=== PATIENT | female | born 1965 | race Caucasian/White ===

== ENCOUNTER → 2018-07-31 | Outpatient (CLI) | payer OTHER ==
--- NOTE | 2018-07-31 09:34 | FL ---
EXAMINATION TYPE: FL barium swallow DATE OF EXAM: 07/31/2018 CLINICAL HISTORY: Dysphasia TECHNIQUE: A double contrast esophagram is performed utilizing air and barium. A total of seconds o f fluoroscopic time was utilized during procedure. COMPARISON: None FINDINGS: The esophagus shows normal motility and emptying into the stomach. Tiny sliding hiatal kayli ia noted. No significant gastroesophageal reflux was seen during real time performance of this study. 49 seconds of fluoroscopy time and 20 at 7 images submitted. IMPRESSION: 1. Tiny hiatal hernia with no diagnostic evidence of gastroesophageal reflux.
== END | disposition home or self-care (01) ==
LOC: RADFLWHC 08:31
PROVIDERS: ATTEND Otolaryngology
DX: R13.10 Dysphagia, unspecified (principal)
CPT/HCPCS: 74220

== ENCOUNTER → 2022-07-31 | Outpatient (CLI) | payer BC ==
[2022-07-31 10:20] VITALS: BP 125/84; PULSE 74; RESP 18; TEMP 97.9
--- NOTE | 2022-07-31 13:22 | P.HPOB ---
History of Present Illness H&P Date: 07/31/22 Chief Complaint: The patient is here for her routine gynecologic exam and ma mmogram. This is a 56-year-old with an LMP of 2006. The patient is here to establish with this office. It is about 1 year since her last pelvic exam. 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 Through Dr. Marinelli, she was using ERT in the form of estradiol patches. She has been using ERT since the time of her hysterectomy and oophorectomy approximately 15 years ago. Her prescription for the ERT ran out 2 weeks ago. She has been having significant hot flashes which have been very bothersome and she would like to restart ERT. She is otherwise without complaints. Review of Systems The patient has lost 7 pounds over the last year. Weight loss has been intentional and she has been doing this with diet and exercise. She would like to lose more weight. She denies respiratory, cardiac, or G.I. problems. Past Medical History Past Medical History: Asthma, GERD/Reflux Additional Past Medical History / Comment(s): SEASONAL ASTMA/ALLERGIES. 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 History of Any Multi-Drug Resistant Organisms: None Reported Past Surgical History: Back Surgery, Hysterectomy, Tonsillectomy Additional Past Surgical History / Comment(s): Left oophorectomy at age 21. ABUNDIO with RSO in 2006 for benign heavy bleeding. Colonoscopy 2015(pt told next after 10yr). Past Anesthesia/Blood Transfusion Reactions: No Reported Reaction Past Psychological History: Anxiety, Depression Smoking Status: Never smoker Past Alcohol Use History: Occasional (2 per month) Past Drug Use History: None Reported Additional History: She has been since 1988. 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 - Past Family History Mother Family Medical History: Dementia, Hypertension Additional Family Medical History / Comment(s): Schizophrenia. Maternal aunt has hypertension. Maternal uncle has dementia. Father Family Medical History: Cancer Additional Family Medical History / Comment(s): Colon cancer. Alcoholism. . Medications and Allergies Home Medications Medication Instructions Recorded Confirmed Type Loratadine/Pseudoephedrine 1 cap PO DAILY 07/31/22 07/31/22 History [Loratadine-D 24Hr Tablet] Multivitamin [Multivitamins Adult 1 cap PO DAILY 07/31/22 07/31/22 History Gummies] Omeprazole [PriLOSEC] 10 mg PO DAILY 07/31/22 07/31/22 History Allergies Allergy/AdvReac Type Severity Reaction Status Date / Time Penicillins Allergy Rash/Hives Unverified 07/31/22 10:11 Exam Vital Signs Temp Pulse Resp BP Pulse Ox 07/31/22 10:15 97.9 F 74 18 125/84 96 Intake and Output 07/30/22 07/31/22 07/31/22 22:59 06:59 14:59 Other: Weight 109.316 kg Height 5 feet 4 inches, weight 241 pounds, BMI 41.4. This is a well-developed well-nourished heavyset white female who is alert and oriented times 3 in no acute distress. HEENT: Within normal limits. NECK: Supple without mass or thyromegaly. CHEST AND LUNGS: Clear to auscultation. HEART: Regular rate and rhythm. BREASTS: Are without mass or discharge. AXILLARY EXAM: Negative for adenopathy. BACK: Negative for CVA tenderness. ABDOMEN: Soft, nontender, without palpable masses. PELVIC EXAM: External genitalia appears normal with minimal atrophy. Vagina appears normal with minimal atrophy. There is no evidence of prolapse. Bimanual examination is negative for mass or tenderness. RECTAL EXAM: Rectovaginal exam is negative for mass or tenderness and is negative for occult blood. EXTREMITIES: Nontender. IMPRESSION: 1. 56-year-old menopausal female status post ABUNDIO/BSO for benign reasons, with normal gynecologic exam. 2. Worsening vasomotor symptoms after her ERT prescription ran out 2 weeks ago. PLAN: 1. Pap smears have been discontinued. 2. Self breast awareness was discussed with the patient. We have also discussed symptoms associated with inflammatory breast cancer. 3. Screening mammogram was done today. 4. We have had a long discussion regarding ERT. We have discussed the WHO study findings including possible increased risk for stroke and blood clots. Because of the symptoms she feels strongly that she would like to go back on ERT. I recommended that we try to find the lowest effective dose that helps her with her symptoms and to use this for the shortest amount of time. She previously used estradiol 0.05 mg patches changed weekly. We will have a trial of estradiol 0.0375 mg patches changed to weekly. She will call if she is having problems with this dose. She will also try to wean from this during the upcoming year. The electronic prescription will be sent to [facility] pharmacy on [facility]. 5. Osteoporosis prevention was discussed. I have stressed the importance of adequate calcium, vitamin D and regular exercise. Recommended amounts of calc ium and vitamin D were also discussed. 6. She has completed her Covid vaccination series and has received a booster. 7. I recommended that she consider doing a colonoscopy after 5 years because of her family history of colon cancer in her father. I have recommended this consider waiting 10 years. 8. She was advised to return in one year for her annual well woman exam and as needed.
== END ==
LOC: WWCWWP 10:05
PROVIDERS: ATTEND Obstetrics & Gynecology
DX: Z01.419 Encounter for gynecological examination (general) (routine) without abnormal findings (principal); Z88.0 Allergy status to penicillin; E66.9 Obesity, unspecified; Z68.41 Body mass index [BMI] 40.0-44.9, adult; Z90.710 Acquired absence of both cervix and uterus
CPT/HCPCS: 77063; 77067

== ENCOUNTER → 2023-08-27 | Outpatient (CLI) | payer BC ==
[2023-08-27 11:08] VITALS: BP 131/85; PULSE 88; RESP 17; TEMP 97.8
--- NOTE | 2023-08-27 12:13 | P.HPOB ---
History of Present Illness H&P Date: 08/27/23 Chief Complaint: The patient is here for her routine gynecologic exam and ma mmogram. This is a 57-year-old with an LMP of 2069 the patient is status post ABUNDIO/BSO for benign reasons. She continues to use ERT with patches, estradiol 0.375 changed weekly. She does have infrequent hot flashes but they seem to be fairly well-controlled. She has been experiencing some urinary incontinence especially with coughing and sneezing. Occasionally she also feels like she has to get to the bathroom right away, but mostly it is instant leakage. She has also been trying to lose weight and states that she has been on a strict diet of 1400 mellissa per day with exercise for the past 5 months and has not noticed any significant weight change. Review of Systems The patient's weight has been stable over the last year. She denies respiratory, cardiac, or G.I. problems. : Mixed urinary incontinence as in the HPI. Past Medical History Past Medical History: Asthma, GERD/Reflux Additional Past Medical History / Comment(s): SEASONAL ASTMA/ALLERGIES. 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 History of Any Multi-Drug Resistant Organisms: None Reported Past Surgical History: Back Surgery, Hysterectomy, Tonsillectomy Additional Past Surgical History / Comment(s): Left oophorectomy at age 21. ABUNDIO with RSO in 2006 for benign heavy bleeding. Colonoscopy 2016. Past Anesthesia/Blood Transfusion Reactions: No Reported Reaction Past Psychological History: Anxiety, Depression Smoking Status: Never smoker Past Alcohol Use History: Occasional (2 per month.) Past Drug Use History: None Reported Additional History: She has been since 1988. 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 - Past Family History Mother Family Medical History: Dementia, Hypertension Additional Family Medical History / Comment(s): Schizophrenia. Maternal aunt has hypertension. Maternal uncle has dementia. Father Family Medical History: Cancer Additional Family Medical History / Comment(s): Colon cancer. Alcoholism. D eceased. Medications and Allergies Home Medications Medication Instructions Recorded Confirmed Type Loratadine/Pseudoephedrine 1 cap PO DAILY 07/31/22 08/27/23 History [Loratadine-D 24Hr Tablet] Multivitamin [Multivitamins Adult 1 cap PO DAILY 07/31/22 08/27/23 History Gummies] Omeprazole [PriLOSEC] 10 mg PO DAILY 07/31/22 08/27/23 History estradioL [estradioL (Once Weekly) 1 patch TRANSDERM WEEKLY #12 patch 07/31/22 08/27/23 Rx 0.0375 mg Patch] Ascorbic Acid [Vitamin C] 1,000 mg PO DAILY 08/27/23 08/27/23 History Cholecalciferol (Vitamin D3) 1 cap PO DAILY 08/27/23 08/27/23 History [Vitamin D3] Cyanocobalamin (Vitamin B-12) 2,500 mcg PO DAILY 08/27/23 08/27/23 History [Vitamin B-12] Magnesium Oxide [Magnesium] 500 mg PO DAILY 08/27/23 08/27/23 History Mv-Mn/FA/Bl Coh/Isoflav/Jujube 1 cap PO DAILY 08/27/23 08/27/23 History [Estroven Menopause Caplet] Ubidecarenone [Co Q-10] 1 cap PO DAILY 08/27/23 08/27/23 History Allergies Allergy/AdvReac Type Severity Reaction Status Date / Time Penicillins Allergy Rash/Hives Unverified 08/27/23 10:45 Exam Vital Signs Temp Pulse Resp BP Pulse Ox 08/27/23 10:51 97.8 F 88 17 131/85 97 Intake and Output 08/26/23 08/27/23 08/27/23 22:59 06:59 14:59 Other: Weight 108.862 kg Height 5 feet 4 inches, weight 240 pounds, BMI 41.2. This is a well-developed well-nourished heavyset white female who is alert and oriented times 3 in no acute distress. HEENT: Within normal limits. NECK: Supple without mass or thyromegaly. CHEST AND LUNGS: Clear to auscultation. HEART: Regular rate and rhythm. BREASTS: Are without mass or discharge. AXILLARY EXAM: Negative for adenopathy. BACK: Negative for CVA tenderness. ABDOMEN: Soft, obese, nontender, without palpable masses. PELVIC EXAM: External genitalia appears normal with mild atrophy. Vagina appears normal with mild atrophy. There is no evidence of prolapse. There is minimal urethral mobility with cough and Valsalva. No urinary leakage was demonstrated. Bimanual examination is negative for mass or tenderness. RECTAL EXAM: Rectovaginal exam is negative for mass or tenderness and is negative for occult blood. EXTREMITIES: Nontender. IMPRESSION: 1. 57-year-old menopausal female status post ABUNDIO/BSO for benign reasons, with normal gynecologic exam. 2. Doing well on ERT in the form of estradiol patches. 3. Mild mixed urinary incontinence without any significant physical findings on exam today. 4. Obesity with difficulty losing weight with diet and exercise. PLAN: 1. Pap smears have been discontinued. 2. Self breast awareness was discussed with the patient. We have also discussed symptoms associated with inflammatory breast cancer. 3. Screening mammogram will be done today. 4. We have had a long discussion regarding urinary incontinence. I have recommended Kegal exercises and timed voids. Instructions on these were discussed the patient. We have also discussed the option of referral to a gynecologic urologist. If she is having significant problems without improvement she was instructed to call after about 3 months for possible referral. 5. We have had a long discussion regarding weight control. I stressed importance of good nutrition, regular meals, and adequate fiber. We've also discussed the importance of regular exercise. I have recommended that she she'll look into a more structured program such as a Weight Watchers program. 6. She is due for a colonoscopy with her father's history of colon cancer. She states she did a Cologuard test during this past year. I have recommended that she do colorectal cancer screening with colonoscopies and not Cologuard since she is considered at higher risk. She will discuss this with her PCP. 7. Continue ERT in the form of estradiol 0.375 mg patches changed weekly. The electronic prescription will be sent to [facility] pharmacy on . 8. She was advised to return in one year for her annual well woman exam and as needed.
--- NOTE | 2023-08-27 13:40 | MM ---
Reason for Exam: Screening (asymptomatic). Last mammogram was performed 1 year(s) and 1 month(s) ago. Patient History: Menarche at age 14. First Full-Term at age 26. Left ovary removed at age 42. Right ovary removed at age 42. Hysterectomy at age 42. Postmenopausal. Risk Values: Sylvie 5 year model risk: 1.1%. NCI Lifetime model risk: 7.4%. Prior Study Comparison: 10/10/2020 Bilateral MG 3D screening mammo w/cad, [facility] [place] . 10/17/2021 Bilateral MG 3D screening mammo w/cad, [facility] [place] . 07/31/2022 Bilateral MG 3D screening mammo w/cad, [facility]. Tissue Density: The breast tissue is heterogeneously dense. This may lower the sensitivity of mammography. Findings: Analyzed By CAD. There is no suspicious group of microcalcifications or new suspicious mass. Benign-appearing calcifications bilaterally. Overall Assessment: Negative, BI-RAD 1 Management: Screening Mammogram of both breasts in [address] [facility] will attempt to contact patient to return for supplemental views and ultrasound if indicated. Patient should continue monthly self-breast exams. A clinical breast exam by your physician is recommended on an annual basis. This exam should not preclude additional follow-up of suspicious palpable abnormalities. Note on Sylvie scores and lifetime risk: 1. A Sylvie score greater than 3% is considered moderate risk. If this is the case, consider specialist referral to assess eligibility for a risk reducing agent. 2. If overall lifetime risk for the development of breast cancer is 20% or higher, the patient may qualify for future screening with alternating mammogram and breast MRI. Electronically signed and approved by: Alvarado Oreilly DO
== END ==
LOC: WWCWWP 10:33
PROVIDERS: ATTEND Obstetrics & Gynecology
DX: Z12.31 Encounter for screening mammogram for malignant neoplasm of breast (principal); E66.9 Obesity, unspecified; J45.909 Unspecified asthma, uncomplicated; N39.46 Mixed incontinence; K21.9 Gastro-esophageal reflux disease without esophagitis; Z78.0 Asymptomatic menopausal state; Z68.41 Body mass index [BMI] 40.0-44.9, adult; Z88.0 Allergy status to penicillin; Z90.710 Acquired absence of both cervix and uterus; Z90.722 Acquired absence of ovaries, bilateral; Z79.899 Other long term (current) drug therapy
CPT/HCPCS: 77063; 77067

== ENCOUNTER → 2023-11-18 | Outpatient (CLI) | payer BC ==
[2023-11-18 14:37] VITALS: BP 130/87; PULSE 91; TEMP 98.5; BMI 39.1
--- NOTE | 2023-11-18 14:46 | P.HPBAR ---
Bariatric H&P - History & Physicial H&P Date: 11/18/23 History & Physicial: Visit/CC: initial clinic visit Patient initial contact: Initial weight: Initial weight in pounds: Height: 5 ft 4 in Initial BMI: Last weight: Current weight: 103.419 kg Current weight in pounds: 228.00 Current BMI: 39.1 Mallory body weight (based on NIH guidelines): 54.431 kg Excess body weight loss: The patient is a 57 year-old F who presents for Bariatric Assessment. Patient comes in today to discuss weight loss surgery as an option. Current BMI 39.1. Patient overall fairly healthy. She has had 2 friends that have had a sleeve gastrectomy in the past and done well. She believes her metabolism is slow and she is not able to keep weight off like she used to. Patient with history of GERD symptoms, prior history of hypercholesterolemia, mild back and right knee pain from suspected arthritis. No tobacco use. No history of DVT or dysphagia. Remains on omeprazole. Had an upper endoscopy about 10 years ago. She is unsure if she had a hiatal hernia at the time. Previous surgeries include hysterectomy, right oophorectomy, inguinal hernia as a child. Review of Systems The patient denies any acute changes in vision or hearing, no dysphagia or odynophagia, no chest pain or shortness of breath, no dysuria or hematuria, no headache, no runny nose, no rectal bleeding or melena, no unexplained weight loss Past Medical History Past Medical History: Asthma, GERD/Reflux Additional Past Medical History / Comment(s): SEASONAL ASTMA/ALLERGIES. 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 History of Any Multi-Drug Resistant Organisms: None Reported Past Surgical History: Back Surgery, Hysterectomy, Tonsillectomy Additional Past Surgical History / Comment(s): Left oophorectomy at age 21. ABUNDIO with RSO in 2006 for benign heavy bleeding. Colonoscopy 2016. Past Anesthesia/Blood Transfusion Reactions: No Reported Reaction Past Psychological History: Anxiety, Depression Smoking Status: Never smoker Past Alcohol Use History: Occasional Past Drug Use History: None Reported - Past Family History Mother Family Medical History: Dementia, Hypertension Additional Family Medical History / Comment(s): Schizophrenia. Maternal aunt has hypertension. Maternal uncle has dementia. Father Family Medical History: Cancer Additional Family Medical History / Comment(s): Colon cancer. Alcoholism. . Surgical - Exam Vital Signs Temp Pulse BP 98.5 F 91 130/87 11/18/23 14:21 11/18/23 14:21 11/18/23 14:21 Physical exam: General: Well-developed, well-nourished HEENT: Normocephalic, sclerae nonicteric Abdomen: Nontender, nondistended Extremities: No edema Neuro: Alert and oriented Bariatric Assessment & Plan (1) Obesity (BMI 30-39.9) Narrative/Plan: 57-year-old female with severe obesity and associated comorbidities. Patient is interested in sleeve gastrectomy. She did state that she would like to discuss the option of GLP agonist with her primary care physician at her annual exam next month. She will contact me after that to tell me if she would like to proceed. If so we will perform upper endoscopy to evaluate for possible hiatal hernia. We discussed the options of sleeve gastrectomy, gastric bypass in detail. The risks of bleeding, infection, stenosis, stricture, leak, abscess, fistula formation, peritonitis, poor weight loss, reflux, vomiting, conversion to an open procedure, aborting sleeve gastrectomy, NM, PE, DVT, and were discussed. All questions answered. Status: Acute Bariatric Checklist Checklist: Plan: Checklist: EGD: 1. Hiatal hernia: 2. H. Pylori: HgbA1c: Vitamin D: Smoking: Primary care physician referral: Psychiatry clearance: Cardiology clearance: Sleep study: Diet journal: VTE risk score: VTE risk level: Rehab needs at discharge:
== END ==
LOC: BARWHC3 14:06
PROVIDERS: ATTEND Surgery
DX: K21.9 Gastro-esophageal reflux disease without esophagitis (principal); E66.9 Obesity, unspecified; J45.909 Unspecified asthma, uncomplicated; F41.9 Anxiety disorder, unspecified; F32.A Depression, unspecified; Z88.0 Allergy status to penicillin; Z68.39 Body mass index [BMI] 39.0-39.9, adult
CPT/HCPCS: 99212

== ENCOUNTER → 2024-09-01 | Outpatient (CLI) | payer BC ==
[2024-09-01 10:58] VITALS: BP 147/87; PULSE 81; RESP 17; TEMP 98
--- NOTE | 2024-09-01 11:28 | P.HPOB ---
History of Present Illness H&P Date: 09/01/24 Chief Complaint: The patient is here for her routine gynecologic exam and ma mmogram. This is a 58-year-old G2, P2 with an LMP of 2006. She is status post ABUNDIO/BSO for benign reasons. She continues to use ERT patches, estradiol 0.0375 changed weekly. She would like to continue on with the ERT patches since she states she has decreased energy when she does not use the patches and this is important as she tries to lose weight. She has lost about 18 pounds over the past year. She has done this with diet and exercise. She is without gynecologic complaints. Review of Systems The patient has lost 18 pounds over the last year. She has done this with regular exercise and dietary changes. She denies respiratory, cardiac, or G.I. problems. Past Medical History Past Medical History: Asthma, GERD/Reflux Additional Past Medical History / Comment(s): SEASONAL ASTMA/ALLERGIES. 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 History of Any Multi-Drug Resistant Organisms: None Reported Past Surgical History: Back Surgery, Hysterectomy, Tonsillectomy Additional Past Surgical History / Comment(s): Left oophorectomy at age 21. ABUNDIO with RSO in 2006 for benign heavy bleeding. Colonoscopy 2023(next after 5yr). Past Anesthesia/Blood Transfusion Reactions: No Reported Reaction Past Psychological History: Anxiety, Depression Smoking Status: Never smoker Past Alcohol Use History: Occasional Past Drug Use History: None Reported - Past Family History Mother Family Medical History: Dementia, Hypertension Additional Family Medical History / Comment(s): Schizophrenia. . Maternal aunt has hypertension. Maternal uncle has dementia. Father Family Medical History: Cancer Additional Family Medical History / Comment(s): Colon cancer. Alcoholism. . Medications and Allergies Home Medications Medication Instructions Recorded Confirmed Type Loratadine/Pseudoephedrine 1 cap PO DAILY 07/31/22 11/19/23 History [Loratadine-D 24Hr Tablet] Multivitamin [Multivitamins Adult 1 cap PO DAILY 07/31/22 11/19/23 History Gummies] Omeprazole [PriLOSEC] 10 mg PO DAILY 07/31/22 11/19/23 History Ascorbic Acid [Vitamin C] 1,000 mg PO DAILY 08/27/23 11/19/23 History Cholecalciferol (Vitamin D3) 1 cap PO DAILY 08/27/23 11/19/23 History [Vitamin D3] Cyanocobalamin (Vitamin B-12) 2,500 mcg PO DAILY 08/27/23 11/19/23 History [Vitamin B-12] estradioL [estradioL (Once Weekly) 1 patch TRANSDERM WEEKLY #12 patch 08/27/23 11/19/23 Rx 0.0375 mg Patch] Cranberry Fruit Extract [Cranberry] 200 mg PO BID 09/01/24 09/01/24 History Green Tea [place] Extract [Green Tea 1 cap PO DAILY 09/01/24 09/01/24 History 600] Allergies Allergy/AdvReac Type Severity Reaction Status Date / Time egg Allergy Rash/Hives Unverified 09/01/24 10:55 Penicillins Allergy Rash/Hives Unverified 09/01/24 10:55 Exam Vital Signs Temp Pulse Resp BP Pulse Ox 09/01/24 10:56 98 F 81 17 147/87 97 Intake and Output 08/31/24 09/01/24 09/01/24 22:59 06:59 14:59 Other: Weight 100.698 kg Height 5 feet 4 inches, weight 222 pounds, BMI 38.1. This is a well-developed well-nourished white female who is alert and oriented times 3 in no acute distress. HEENT: Within normal limits. NECK: Supple without mass or thyromegaly. CHEST AND LUNGS: Clear to auscultation. HEART: Regular rate and rhythm. BREASTS: Are without mass or discharge. AXILLARY EXAM: Negative for adenopathy. BACK: Negative for CVA tenderness. ABDOMEN: Soft, nontender, without palpable masses. PELVIC EXAM: External genitalia appears normal with minimal atrophy. Vagina appears normal with minimal atrophy. There is no evidence of prolapse. Bimanual examination is negative for mass or tenderness. RECTAL EXAM: Rectovaginal exam is negative for mass or tenderness and is negative for occult blood. EXTREMITIES: Nontender. IMPRESSION: 1. 58-year-old menopausal female status post ABUNDIO/BSO for benign reasons, with normal gynecologic exam. 2. Doing well on ERT. PLAN: 1. Pap smears have been discontinued. 2. Self breast awareness was discussed with the patient. We have also discussed symptoms associated with inflammatory breast cancer. 3. Screening mammogram will be done today. 4. Continue estradiol 0.0375 mg patches changed weekly. In the upcoming year she will try to gradually wean from the patches. We have discussed different ways of weaning from the patch. Electronic prescription will be sent to [facility] pharmacy on . 5. I have congratulated her on successful weight loss and have encouraged her to continue trying to lose weight with diet and exercise. 6. She was advised to return in one year for her annual well woman exam.
== END ==
LOC: WWCWWP 10:44
PROVIDERS: ATTEND Obstetrics & Gynecology
DX: Z12.31 Encounter for screening mammogram for malignant neoplasm of breast (principal); Z78.0 Asymptomatic menopausal state; Z90.710 Acquired absence of both cervix and uterus; Z90.722 Acquired absence of ovaries, bilateral; Z88.0 Allergy status to penicillin; Z91.012 Allergy to eggs
CPT/HCPCS: 77063; 77067